=== PATIENT | female | born 1955 | race Two or more races ===

== ENCOUNTER 2018-10-04 20:55 | Emergency (ER) | payer OTHER ==
[~2018-10-04] VITALS: Ht 157.5 cm; Wt 59.0 kg
[2018-10-04 21:01] VITALS: Ht 157.5 cm; Wt 59.0 kg
[2018-10-04 23:04] VITALS: BP 160/96
== END 2018-10-04 23:04 | disposition home or self-care (01) ==
LOC: ED 20:55
DX: F41.1 Generalized anxiety disorder (principal); F43.0 Acute stress reaction; I10 Essential (primary) hypertension; E78.00 Pure hypercholesterolemia, unspecified
CPT/HCPCS: 82962